=== PATIENT | female | born 1975 | race Caucasian/White ===

== ENCOUNTER 2017-03-21 21:54 | Emergency (ER) | payer SELFPAY ==
[~2017-03-21] VITALS: Ht 154.9 cm; Wt 59.0 kg
[~2017-03-21 21:54] MED LIST: NITR-58 PO
[2017-03-21 21:56] VITALS: Ht 154.9 cm; Wt 59.0 kg
== END 2017-03-22 02:39 | disposition left against medical advice (07) ==
LOC: E/R 21:54
DX: Z53.21 Procedure and treatment not carried out due to patient leaving prior to being seen by health care provider (principal)

== ENCOUNTER 2018-02-14 00:08 | Emergency (ER) | END 2018-02-14 06:31 | disposition left against medical advice (07) ==

== ENCOUNTER 2018-03-15 00:01 | Emergency (ER) | END 2018-03-15 07:20 | disposition home or self-care (01) ==

== ENCOUNTER 2018-07-13 00:11 | Emergency (ER) | END 2018-07-13 02:54 | disposition home or self-care (01) ==

== ENCOUNTER 2018-08-02 06:19 | Inpatient (IN) | END 2018-08-02 13:59 | disposition home or self-care (01) | DRG 313 ==